=== PATIENT | male | born 1960 | race African-American/Black ===

== ENCOUNTER → 2019-10-22 | Emergency (ER) | payer MEDICAID ==
[~2019-10-22] VITALS: Ht 188 cm; Wt 74.8 kg
[~2019-10-22] MED LIST: cloNIDine HCL 0.1 MG TAB PO ONE
[2019-10-22 06:37] LABS: Basophils # (auto) 0.1 10 ^3/uL (0-0.2); Eosinophils # (auto) 0.7 10 ^3/uL (0-0.8); Eosinophils % (auto) 8.7 % (0.0-7.0); Mean Corpuscular Hemoglobin 26.6 pg (28.0-32.0); Monocytes # (auto) 0.4 10 ^3/uL (0-1.3)
[2019-10-22 06:39] LABS: Basophils % (auto) 0.7 % (0.0-2.0); Hematocrit 40.1 % (41.0-53.0); Lymphocytes # (auto) 1.7 10 ^3/uL (0.4-5.4); Lymphocytes % (auto) 22.3 % (10.0-50.0); Mean Corpuscular Hgb Conc. 32.5 g/dL (32.0-36.0); Mean Corpuscular Volume 81.8 fL (80.0-100.0); Monocytes % (auto) 5.6 % (0.0-12.0); Neutrophils # (auto) 4.8 10 ^3/uL (1.6-8.6); Neutrophils % (auto) 62.7 % (37.0-80.0); Nucleated Red Blood Cells % 0.2 %; Platelet Count (auto) 328 10^3/uL (140-450); Red Cell Distribution Width 15.1 % (11.8-14.3); White Blood Cell 7.7 10^3/uL (4.4-10.8)
[2019-10-22 06:57] LABS: INR 1.04 (0.9-1.15); Partial Thromboplastin Time 28.2 sec (23.64-32.05)
[2019-10-22 07:00] LABS: Albumin 3.7 g/dL (3.4-5.0); Calcium 8.6 mg/dL (8.5-10.1); Magnesium 2.6 mg/dL (1.6-2.6); Potassium 4.3 mmol/L (3.5-5.1)
[2019-10-22 07:08] LABS: BUN/Creatinine Ratio 10.8; Bilirubin, Total 0.4 mg/dL (0.2-1.0); Total Protein 8.2 g/dL (6.4-8.2)
[2019-10-22 07:22] VITALS: BP 126/86
== END | disposition home or self-care (01) ==
LOC: ER 05:21 → EDBD 05:21
DX: J44.1 Chronic obstructive pulmonary disease with (acute) exacerbation (principal); E03.9 Hypothyroidism, unspecified; M25.471 Effusion, right ankle; M20.11 Hallux valgus (acquired), right foot; I12.9 Hypertensive chronic kidney disease with stage 1 through stage 4 chronic kidney disease, or unspecified chronic kidney disease; N18.3 Chronic kidney disease, stage 3 (moderate); E78.5 Hyperlipidemia, unspecified; F17.210 Nicotine dependence, cigarettes, uncomplicated
CPT/HCPCS: 36415; 36600; 71045; 73610; 73630; 80053; 82805; 83735; 83880; 84443; 84484; 85025; 85379; 85610; 85730; 93005

== ENCOUNTER 2019-11-21 01:34 | Inpatient (IN) | payer MEDICAID ==
[~2019-11-21] VITALS: Ht 188 cm; Wt 74.6 kg
[2019-11-21] MEDS ORDERED: ALBUTEROL SULF 2.5 MG/0.5ML(0.5%) NEB SOLN NEB ONE (01:45)
[2019-11-21] MEDS ORDERED: methylPREDNISolone SOD SUCC 125 MG/2 ML VL IV ONE (01:45)
[2019-11-21] MEDS ORDERED: IPRATROPIUM BROM 0.5 MG/2.5ML INH SOL NEB ONE (01:45)
[2019-11-21 02:12] LABS: Basophils # (auto) 0.1 10 ^3/uL (0-0.2); Eosinophils # (auto) 0.7 10 ^3/uL (0-0.8); Monocytes # (auto) 0.6 10 ^3/uL (0-1.3); Monocytes % (auto) 6.5 % (0.0-12.0); Neutrophils # (auto) 4.8 10 ^3/uL (1.6-8.6); Red Cell Distribution Width 15.3 % (11.8-14.3)
[2019-11-21 02:14] LABS: Basophils % (auto) 0.8 % (0.0-2.0); Eosinophils % (auto) 7.7 % (0.0-7.0); Hematocrit 42.5 % (41.0-53.0); Lymphocytes # (auto) 3.2 10 ^3/uL (0.4-5.4); Lymphocytes % (auto) 34.2 % (10.0-50.0); Mean Corpuscular Volume 81.9 fL (80.0-100.0); Neutrophils % (auto) 50.8 % (37.0-80.0); Nucleated Red Blood Cells % 0.1 %; Platelet Count (auto) 378 10^3/uL (140-450); White Blood Cell 9.4 10^3/uL (4.4-10.8)
[2019-11-21 02:31] LABS: BUN/Creatinine Ratio 7.6; INR 1.02 (0.9-1.15); Partial Thromboplastin Time 29.6 sec (23.64-32.05); Potassium 3.7 mmol/L (3.5-5.1)
[2019-11-21 02:32] LABS: Albumin 4.2 g/dL (3.4-5.0); Calcium 8.5 mg/dL (8.5-10.1); Magnesium 2.3 mg/dL (1.6-2.6)
[2019-11-21 02:35] LABS: Bilirubin, Total 0.5 mg/dL (0.2-1.0); Total Protein 9.2 g/dL (6.4-8.2)
[2019-11-21] MEDS ORDERED: IOHEXOL 350 MG/ML 100ML IJ ONE (03:48)
[2019-11-21] MEDS ORDERED: SODIUM CHLORIDE 0.9% 1,000 ML IV SCH (04:12)
[2019-11-21] MEDS ORDERED: ONDANSETRON HCL 4 MG/2 ML VIAL IV PRN (04:15)
[2019-11-21] MEDS ORDERED: ACETAMINOPHEN 325 MG TAB PO PRN (04:15)
[2019-11-21] MEDS ORDERED: MORPHINE SULF INJ 2 MG/ML SYRINGE 1ML IV PRN (04:15)
[2019-11-21] MEDS ORDERED: NITROGLYCERIN 0.4 MG SL TAB SL PRN (04:15)
[2019-11-21] MEDS ORDERED: ZOLPIDEM TARTRATE 5 MG TAB PO PRN (04:15)
[2019-11-21 04:21] VITALS: BP 118/81
[2019-11-21] MEDS ORDERED: IPRATROPIUM BROM 0.5 MG/2.5ML INH SOL NEB PRN (04:30)
[2019-11-21] MEDS ORDERED: ALBUTEROL SULF 2.5 MG/0.5ML(0.5%) NEB SOLN NEB PRN ×2 (04:30→15:15)
[2019-11-21 07:11] LABS: Basophils # (auto) 0 10 ^3/uL (0-0.2); Eosinophils # (auto) 0 10 ^3/uL (0-0.8); Lymphocytes # (auto) 0.7 10 ^3/uL (0.4-5.4); Monocytes # (auto) 0.1 10 ^3/uL (0-1.3); Monocytes % (auto) 1.2 % (0.0-12.0); Red Cell Distribution Width 15.4 % (11.8-14.3)
[2019-11-21 07:14] LABS: Basophils % (auto) 0.7 % (0.0-2.0); Eosinophils % (auto) 0.5 % (0.0-7.0); Hematocrit 39.7 % (41.0-53.0); Hemoglobin 13.3 g/dL (13.5-17.5); Lymphocytes % (auto) 9.5 % (10.0-50.0); Mean Corpuscular Hemoglobin 27.3 pg (28.0-32.0); Mean Corpuscular Hgb Conc. 33.5 g/dL (32.0-36.0); Mean Corpuscular Volume 81.5 fL (80.0-100.0); Neutrophils # (auto) 6.5 10 ^3/uL (1.6-8.6); Neutrophils % (auto) 88.1 % (37.0-80.0); Nucleated Red Blood Cells % 0.1 %; Platelet Count (auto) 361 10^3/uL (140-450); Red Blood Cells 4.88 10^6/uL (4.5-5.90); White Blood Cell 7.4 10^3/uL (4.4-10.8)
[2019-11-21 07:24] LABS: Calcium 7.6 mg/dL (8.5-10.1); Potassium 4.2 mmol/L (3.5-5.1)
[2019-11-21 07:27] LABS: BUN/Creatinine Ratio 7.9
[2019-11-21] MEDS: CARVEDILOL 3.125 MG TAB PO SCH ×2 (10:00→23:05)
[2019-11-21] MEDS ORDERED: CLOPIDOGREL BISULFATE 75 MG TAB PO SCH (10:00)
[2019-11-21] MEDS ORDERED: LISINOPRIL 20 MG TAB PO SCH (10:00)
[2019-11-21] MEDS ORDERED: methylPREDNISolone SOD SUCC 125 MG/2 ML VL IV SCH (10:00)
[2019-11-21] MEDS: cefTRIAXone 1GM/50ML D5W 50 ML IV SCH (10:12)
[2019-11-21] MEDS: ASPirin 81 mg TAB PO SCH (10:13)
[2019-11-21] MEDS: DOCUSATE SOD 100 MG CAP PO SCH (10:13)
[2019-11-21] MEDS: ENOXAPARIN SOD 80 MG/0.8ML SYRINGE SC SCH ×2 (10:17→23:04)
[2019-11-21] MEDS ORDERED: guaiFENesin-DM 100/10mg/5ml SYR PO PRN (15:15)
[2019-11-21] MEDS ORDERED: AZITHROMYCIN 250 MG TAB PO ONE (15:15)
[2019-11-21] MEDS: SODIUM CHLORIDE 0.9% 1,000 ML IV SCH (15:45)
[2019-11-21] MEDS: IPRATROPIUM BROM 0.5 MG/2.5ML INH SOL NEB SCH (18:00)
[2019-11-21] MEDS: ALBUTEROL SULF 2.5 MG/0.5ML(0.5%) NEB SOLN NEB SCH (18:00)
--- NOTE | 2019-11-21 20:15 | NUR ---
Telemetry admit from ER SHRUTHI GRADYDGE admitted to Telemetry unit after SBAR received. Patient oriented to Renaldo goetz RN, unit, room, bed, and unit policies regarding patient care and visiting hours. Patient now on continuous telemetry monitoring, tele box # [id number] and telemetry reading on arrival to unit is NSR. Patient placed on bedside oxygen, weighed by bedscale and encouraged to call if they need something. All questions and concerns addressed, patient verbalized understanding.
[2019-11-21 20:51] VITALS: BP 118/80
[2019-11-21] MEDS ORDERED: MET50T PO (21:10)
[2019-11-21] MEDS ORDERED: ATOR20TA PO (21:10)
[2019-11-21 22:00] VITALS: BP 140/90
[2019-11-21] MEDS ORDERED: ATORVASTATIN 20 MG TAB PO SCH (22:00)
[2019-11-21] MEDS: methylPREDNISolone SOD SUCC 125 MG/2 ML VL IV SCH (23:05)
[2019-11-22] VITALS (7 sets, daily range): BP systolic 132–156; BP diastolic 89–112
[2019-11-22] MEDS: ALBUTEROL SULF 2.5 MG/0.5ML(0.5%) NEB SOLN NEB SCH ×2 (02:00→06:00)
[2019-11-22] MEDS: IPRATROPIUM BROM 0.5 MG/2.5ML INH SOL NEB SCH ×2 (02:00→06:00)
[2019-11-22 05:58] LABS: Basophils # (auto) 0 10 ^3/uL (0-0.2); Basophils % (auto) 0.1 % (0.0-2.0); Eosinophils # (auto) 0 10 ^3/uL (0-0.8); Hematocrit 39.3 % (41.0-53.0); Hemoglobin 12.9 g/dL (13.5-17.5); Lymphocytes % (auto) 8.4 % (10.0-50.0); Mean Corpuscular Hgb Conc. 32.8 g/dL (32.0-36.0); Mean Corpuscular Volume 82.3 fL (80.0-100.0); Monocytes # (auto) 0.1 10 ^3/uL (0-1.3); Monocytes % (auto) 1.1 % (0.0-12.0); Neutrophils # (auto) 10.8 10 ^3/uL (1.6-8.6); Neutrophils % (auto) 90.4 % (37.0-80.0); Platelet Count (auto) 352 10^3/uL (140-450); Red Blood Cells 4.77 10^6/uL (4.5-5.90); Red Cell Distribution Width 15.2 % (11.8-14.3)
[2019-11-22 06:22] LABS: Calcium 8.9 mg/dL (8.5-10.1); Magnesium 2.4 mg/dL (1.6-2.6); Potassium 4.5 mmol/L (3.5-5.1)
[2019-11-22 06:28] LABS: BUN/Creatinine Ratio 15.2
--- NOTE | 2019-11-22 06:56 | NUR ---
Respiratory note: NO PRN TX GIVEN AT THIS TIME, NO SOB NOTED. SPO2 96%, HR 69, RR 16.
--- NOTE | 2019-11-22 07:35 | NUR ---
Opening Shift Note Assumed care of patient, awake and alert. No S/S of distress/SOB or pain reported at this time, currently on room air. Instructed on POC and to call for assist PRN, call light within reach, fall precautions in place, will continue to monitor for changes Q1hr and PRN.
[2019-11-22] MEDS: SODIUM CHLORIDE 0.9% 1,000 ML IV SCH (07:55)
[2019-11-22] MEDS ORDERED: ALBUTEROL SULF 2.5 MG/0.5ML(0.5%) NEB SOLN NEB PRN (08:00)
[2019-11-22] MEDS ORDERED: IPRATROPIUM BROM 0.5 MG/2.5ML INH SOL NEB PRN (08:00)
[2019-11-22] MEDS: cefTRIAXone 1GM/50ML D5W 50 ML IV SCH (10:11)
[2019-11-22] MEDS: ENOXAPARIN SOD 80 MG/0.8ML SYRINGE SC SCH ×2 (10:12→21:47)
[2019-11-22] MEDS: DOCUSATE SOD 100 MG CAP PO SCH (10:12)
[2019-11-22] MEDS: methylPREDNISolone SOD SUCC 125 MG/2 ML VL IV SCH ×2 (10:12→21:47)
[2019-11-22] MEDS: CARVEDILOL 3.125 MG TAB PO SCH ×2 (10:13→21:49)
[2019-11-22] MEDS: ASPirin 81 mg TAB PO SCH (10:13)
[2019-11-22] MEDS: AZITHROMYCIN 250 MG TAB PO SCH (10:14)
[2019-11-22] MEDS ORDERED: PANTOPRAZOLE 40 MG TAB PO ONE (12:15)
--- NOTE | 2019-11-22 14:25 | NUR ---
Attempted PT eval, pt is off unit for procedure. Will attempt again later.
--- NOTE | 2019-11-22 19:19 | NUR ---
Respiratory note: PT RECIEVED ON RA. PT WAS SLEEPING AT THIS TIME IN NO RESP DISTRESS. PRN TX NOT INDICATED. SPO2 92%, HR 89, RR 18. BS DIM T/O. PT AWARE TO CALL FOR PRN TX IF SOB/WHEEZING.
--- NOTE | 2019-11-22 19:30 | NUR ---
Opening Shift Note Assumed care of patient, awake and alert. No S/S of distress/SOB or pain. Instructed on POC and to call for assist PRN, will continue to monitor for changes Q1hr and PRN.
[2019-11-23] MEDS: SODIUM CHLORIDE 0.9% 1,000 ML IV SCH (00:35)
[2019-11-23 05:04] VITALS: BP 151/99
[2019-11-23 06:25] LABS: Basophils # (auto) 0 10 ^3/uL (0-0.2); Basophils % (auto) 0.1 % (0.0-2.0); Eosinophils # (auto) 0 10 ^3/uL (0-0.8); Hematocrit 38.8 % (41.0-53.0); Hemoglobin 12.8 g/dL (13.5-17.5); Lymphocytes # (auto) 0.9 10 ^3/uL (0.4-5.4); Mean Corpuscular Hemoglobin 26.7 pg (28.0-32.0); Mean Corpuscular Hgb Conc. 32.9 g/dL (32.0-36.0); Mean Corpuscular Volume 81.1 fL (80.0-100.0); Monocytes # (auto) 0.3 10 ^3/uL (0-1.3); Monocytes % (auto) 2.2 % (0.0-12.0); Neutrophils % (auto) 90.7 % (37.0-80.0); Nucleated Red Blood Cells % 0.1 %; Platelet Count (auto) 347 10^3/uL (140-450); Red Blood Cells 4.78 10^6/uL (4.5-5.90); Red Cell Distribution Width 15.3 % (11.8-14.3); White Blood Cell 13.2 10^3/uL (4.4-10.8)
[2019-11-23 06:40] LABS: Potassium 4.6 mmol/L (3.5-5.1)
[2019-11-23 06:53] LABS: BUN/Creatinine Ratio 17.1; Calcium 8.6 mg/dL (8.5-10.1)
[2019-11-23 08:00] VITALS: BP 132/77
[2019-11-23] MEDS: cefTRIAXone 1GM/50ML D5W 50 ML IV SCH (09:19)
[2019-11-23] MEDS: methylPREDNISolone SOD SUCC 125 MG/2 ML VL IV SCH (09:19)
[2019-11-23] MEDS: ASPirin 81 mg TAB PO SCH (09:20)
[2019-11-23] MEDS: DOCUSATE SOD 100 MG CAP PO SCH (09:20)
[2019-11-23] MEDS: AZITHROMYCIN 250 MG TAB PO SCH (09:21)
[2019-11-23] MEDS: CARVEDILOL 3.125 MG TAB PO SCH (09:23)
[2019-11-23] MEDS: ENOXAPARIN SOD 80 MG/0.8ML SYRINGE SC SCH (09:42)
[2019-11-23] MEDS ORDERED: PANTOPRAZOLE 40 MG TAB PO SCH (10:00)
--- NOTE | 2019-11-23 11:29 | NUR ---
DOCTOR PURCELL AT BEDSIDE DISCUSSING POC, PATIENT VERBALIZES UNDERSTANDING AND AGREES WITH POC.
--- NOTE | 2019-11-23 11:55 | NUR ---
DOCTOR SOTOMAYOR AT BEDSIDE DISCUSSING POC PATIENT VERBALIZES UNDERSTANDING AND AGREES WITH POC. DOCTOR SOTOMAYOR INFORMED PATIENT THAT HE WILL BE D/C TODAY PATIENT VERBALIZES UNDERSTANDING AND AGREES WITH D/C.
[2019-11-23 12:00] VITALS: BP 145/73
[2019-11-23] MEDS ORDERED: CAR3125T PO (12:32)
[2019-11-23] MEDS ORDERED: NIC21P TOP (12:32)
[2019-11-23] MEDS ORDERED: PANT40T PO (12:32)
[2019-11-23] MEDS ORDERED: ASPI81CH43 PO (12:32)
--- NOTE | 2019-11-23 13:16 | NUR ---
DOCTOR ANTOINE AMAYA.
--- NOTE | 2019-11-23 14:42 | NUR ---
Discharge instructions given as ordered. Encourage to follow up with PMD as instructed. All questions and concerns addressed. Patient verbalized understanding. Medication reconciliation form completed and copy given to patient. No home medications held in Pharmacy and none returned to patient, and no needed vaccines given. IV removed with catheter intact, pressure dressing applied. Telemetry unit returned to ICU. Patient taken to front lobby via wheelchair with all personal belongings, accompanied by staff. No distress noted at time of departure.
== END 2019-11-23 14:39 | disposition home or self-care (01) | DRG 133 ==
LOC: ER 01:35 → TELE 01:36 → TELE-WESTW 20:32
PROVIDERS: ADMIT Hospitalist; ATTEND Internal Medicine
DX: J96.00 Acute respiratory failure, unspecified whether with hypoxia or hypercapnia (principal); I21.A1 Myocardial infarction type 2; N17.0 Acute kidney failure with tubular necrosis; J44.1 Chronic obstructive pulmonary disease with (acute) exacerbation; J45.901 Unspecified asthma with (acute) exacerbation; I07.1 Rheumatic tricuspid insufficiency; N18.3 Chronic kidney disease, stage 3 (moderate); E86.0 Dehydration; D72.829 Elevated white blood cell count, unspecified; T38.0X5A Adverse effect of glucocorticoids and synthetic analogues, initial encounter; F17.210 Nicotine dependence, cigarettes, uncomplicated; I12.9 Hypertensive chronic kidney disease with stage 1 through stage 4 chronic kidney disease, or unspecified chronic kidney disease; Z20.828 Contact with and (suspected) exposure to other viral communicable diseases; E78.5 Hyperlipidemia, unspecified; M71.20 Synovial cyst of popliteal space [Baker], unspecified knee; Z79.1 Long term (current) use of non-steroidal anti-inflammatories (NSAID); Y92.89 Other specified places as the place of occurrence of the external cause
CPT/HCPCS: 36415; 71045; 76775; 78582; 80048; 80053; 80061; 83605; 83735; 83880; 84484; 85025; 85379; 85610; 85730; 87040; 87081; 93306; 93970; 94640; 96361; 96365; 96375; 96376; G0378; J0696

== ENCOUNTER 2021-08-18 01:25 | Emergency (ER) | payer MEDICAID ==
[~2021-08-18] VITALS: Ht 188 cm; Wt 72.6 kg
[2021-08-18 01:25] VITALS: BP 160/92
[~2021-08-18 01:25] MED LIST changes: +ASPI81CH43 PO; +ATOR20TA PO; +CAR3125T PO; +NIC21P TOP; +PANT40T PO; -cloNIDine HCL 0.1 MG TAB PO ONE
[2021-08-18] MEDS ORDERED: ACET-1158 PO (06:40)
[2021-08-18] MEDS ORDERED: ACETAMINOPHEN 325 MG TAB PO ONE (06:45)
== END 2021-08-18 07:23 | disposition home or self-care (01) ==
LOC: ER 01:25
DX: G89.29 Other chronic pain (principal); M79.671 Pain in right foot; M20.11 Hallux valgus (acquired), right foot; F15.10 Other stimulant abuse, uncomplicated; I10 Essential (primary) hypertension; J44.9 Chronic obstructive pulmonary disease, unspecified; E78.5 Hyperlipidemia, unspecified; F17.210 Nicotine dependence, cigarettes, uncomplicated; Z79.82 Long term (current) use of aspirin; Z79.899 Other long term (current) drug therapy